=== PATIENT | male | born 1995 ===

== ENCOUNTER 2018-02-23 14:10 | Emergency (ER) | payer OTHER ==
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
--- NOTE | 2018-02-23 16:18 | RAD ---
Date of service: 02/23/2018 PROCEDURE: Radiographs of the Lumbar Spine. HISTORY: pain r/o fx COMPARISON: No prior. FINDINGS: BONES: Normal alignment. No listhesis. No fracture. DISC SPACES: Unremarkable. OTHER FINDINGS: None. IMPRESSION: Unremarkable radiographs of the lumbar spine.
[2018-02-23 16:20] VITALS: BP 129/72; PULSE 85; RESP 19; TEMP 98; O2SAT 100
--- NOTE | 2018-02-23 16:20 | RAD ---
Date of service: 02/23/2018 PROCEDURE: Left Knee Radiographs. HISTORY: Pain. COMPARISON: None. FINDINGS: BONES: Normal. No fracture. JOINTS: Normal. No osteoarthritis. JOINT EFFUSION: None. OTHER FINDINGS: None. IMPRESSION: Normal radiographs of the left knee.
--- NOTE | 2018-02-23 16:21 | RAD ---
Date of service: 02/23/2018 PROCEDURE: Right Knee Radiographs. HISTORY: pain r/o fx COMPARISON: None. FINDINGS: BONES: Normal. No fracture. JOINTS: Normal. No osteoarthritis. JOINT EFFUSION: None. OTHER FINDINGS: None. IMPRESSION: Normal radiographs of the right knee.
--- NOTE | 2018-02-23 16:24 | RAD ---
Date of service: 02/23/2018 PROCEDURE: Radiographs of the right elbow. HISTORY: pain r/o fx COMPARISON: No prior. FINDINGS: BONES: Normal. No fracture. JOINTS: Normal. No osteoarthritis. SOFT TISSUES: Normal. JOINT EFFUSION: None. OTHER FINDINGS: None. IMPRESSION: Unremarkable radiographs of the right elbow.
== END 2018-02-23 16:16 | disposition home or self-care (01) ==
LOC: ED 14:10
DX: S80.01XA Contusion of right knee, initial encounter (principal); S80.02XA Contusion of left knee, initial encounter; S46.811A Strain of other muscles, fascia and tendons at shoulder and upper arm level, right arm, initial encounter; M54.5 Low back pain; V49.49XA Driver injured in collision with other motor vehicles in traffic accident, initial encounter; W22.11XA Striking against or struck by driver side automobile airbag, initial encounter; Y92.410 Unspecified street and highway as the place of occurrence of the external cause